=== PATIENT | male | born 1930 | race Caucasian/White ===

== ENCOUNTER 2022-01-22 12:32 | Inpatient (IN) | payer MEDICARE ==
[~2022-01-22] VITALS: Ht 177.8 cm; Wt 76.0 kg
[~2022-01-22 12:32] MED LIST: ALLO100T PO; CLOT15CR5 TP; FLUT9.9S NS; QUIN10TA15 PO; TERA5CAP3 PO
[2022-01-22] MEDS ORDERED: IV RINGERS,LACTATED 1000ML 1,000 ML IV SCH (13:15)
[2022-01-22 13:47] LABS: BASO % 0 % (0-3); EOS % 0 % (0-3); HEMATOCRIT 32.1 % (39.0-53.0); HEMOGLOBIN 10.8 g/dL (13.0-17.5); LYMPH # 0.8 x10^3/uL (1.0-4.8); LYMPH % 6 % (24-48); MEAN CORPUSCULAR HEMOGLOBIN 32 pg (25-35); MEAN CORPUSCULAR HGB CONC 34 g/dL (31-37); MEAN CORPUSCULAR VOLUME 94 fL (79-100); MONO # 1.4 x10^3/uL (0.0-1.1); MONO % 10 % (0-9); NEUT # 11.3 x10^3/uL (1.8-7.7); NEUT % 84 % (31-73); PLATELET COUNT 207 x10^3/uL (140-400); RED BLOOD COUNT 3.41 x10^6/uL (4.30-5.70); RED CELL DISTRIBUTION WIDTH 14.2 % (11.5-14.5); WHITE BLOOD COUNT 13.6 x10^3/uL (4.0-11.0)
[2022-01-22 13:56] LABS: CREATININE 1.9 mg/dL (0.7-1.3); GFR 33.5; POTASSIUM 3.9 mmol/L (3.5-5.1)
[2022-01-22 13:57] LABS: BACTERIA,URINE MODERATE /HPF (0-FEW); WBC,URINE TNTC /HPF (0-4)
[2022-01-22 14:02] LABS: ALBUMIN 3.2 g/dL (3.4-5.0); ALBUMIN/GLOBULIN RATIO 0.8 (1.0-1.7); MAGNESIUM 2.1 mg/dL (1.8-2.4); TOTAL BILIRUBIN 2.2 mg/dL (0.2-1.0); TOTAL PROTEIN 7.2 g/dL (6.4-8.2)
--- NOTE | 2022-01-22 14:33 | PHYS DOC ---
Past Medical History Past Medical History: Arthritis, Arrhythmia (flutter), CAD, High Cholesterol, Hypertension, Renal Disease, Stroke, TIA, Other Additional Past Medical Histor: seasonal allergies, gout, R side weakness- residual, BPH Additional Past Surgical Histo: R hand Smoking Status: Never Smoker Alcohol Use: None Drug Use: None General Adult EDM: Chief Complaint: BLOOD IN URINE HPI: HPI: Patient is a 89 year old male who [facility] from SNF [facility]. Per long-term, patient also has AMS. He typically is alert and oriented x4 and is independently mobile. Since coming home from outing with family yesterday, patient is alert and oriented x2-3 and weak. long term also reports two episodes of emesis. Patient complains of large bruise on RUE, which was negative for DVT via US in the facility. During interview and exam, patient states he "wants to get back to his room" multiple times. Review of Systems: Review of Systems: Unable to obtain secondary to patient's delirium. Heart Score: C/O Chest Pain: No Current Medications: Current Medications Medications (Trade) Dose Ordered Sig/Fozia Start Time Stop Time Status Last Admin Dose Admin Ringer's Solution 1,000 ml @ 1,000 mls/hr Q1H 01/22/22 13:15 01/22/22 14:14 DC 01/22/22 13:42 1,000 MLS/HR Allergies: Allergies: Allergies Coded Allergies Type Severity Reaction Last Updated Verified No Known Drug Allergies 01/22/22 No Physical Exam: PE: Constitutional: Well developed, well nourished, no acute distress, chronically ill-appearing. HENT: Normocephalic, atraumatic, bilateral external ears normal. Eyes: EOMI, conjunctiva normal, no discharge. Neck: Normal range of motion, no stridor. Cardiovascular: Heart regular rate and rhythm. No apparent murmurs, rubs or gallops. Lungs & Thorax: No increased work of breathing, equal thoracic expansion. Abdomen: Bowel sounds normal, soft, no tenderness, no masses, no pulsatile masses. Skin: Right upper extremity with diffuse ecchymosis with minimal tenderness. Skin otherwise warm, dry, no erythema, no rash. Extremities: No cyanosis, no clubbing, active ROM intact, no edema. Neurologic: Alert and oriented x2 (person, place), normal motor function, normal sensory function, no focal deficits noted. Current Patient Data: Labs: Laboratory Tests Test 01/22/22 13:25 01/22/22 13:36 Urine Collection Type U cath Urine Color (Auto) Light orange Urine Turbidity Turbid Urine pH (Auto) 6.0 (<5.0-8.0) Urine Specific [place] 1.013 (1.000-1.030) Urine Protein (Auto) 30 mg/dL (Negative) Urine Glucose (Auto)(UA) Negative mg/dL (Negative) Urine Ketones (Auto) Negative mg/dL (Negative) Urine Blood (Auto) Large (Negative) Urine Nitrite Negative (Negative) Urine Bilirubin (Auto) Negative (Negative) Urine Urobilinogen (Auto) Normal mg/dL (Normal) Urine Leukocyte Esterase (Auto) Large (Negative) Urine RBC 1-2 /HPF (0-2) Urine WBC Tntc /HPF (0-4) Urine Squamous Epithelial Cells Occ /LPF Urine Bacteria Moderate /HPF (0-FEW) White Blood Count 13.6 x10^3/uL (4.0-11.0) H Red Blood Count 3.41 x10^6/uL (4.30-5.70) L Hemoglobin 10.8 g/dL (13.0-17.5) L Hematocrit 32.1 % (39.0-53.0) L Mean Corpuscular Volume 94 fL (79-100) Mean Corpuscular Hemoglobin 32 pg (25-35) Mean Corpuscular Hemoglobin Concent 34 g/dL (31-37) Red Cell Distribution Width 14.2 % (11.5-14.5) Platelet Count 207 x10^3/uL (140-400) Neutrophils (%) (Auto) 84 % (31-73) H Lymphocytes (%) (Auto) 6 % (24-48) L Monocytes (%) (Auto) 10 % (0-9) H Eosinophils (%) (Auto) 0 % (0-3) Basophils (%) (Auto) 0 % (0-3) Neutrophils # (Auto) 11.3 x10^3/uL (1.8-7.7) H Lymphocytes # (Auto) 0.8 x10^3/uL (1.0-4.8) L Monocytes # (Auto) 1.4 x10^3/uL (0.0-1.1) H Eosinophils # (Auto) 0.0 x10^3/uL (0.0-0.7) Basophils # (Auto) 0.0 x10^3/uL (0.0-0.2) Sodium Level 144 mmol/L (136-145) Potassium Level 3.9 mmol/L (3.5-5.1) Chloride Level 106 mmol/L (98-107) Carbon Dioxide Level 27 mmol/L (21-32) Anion Gap 11 (6-14) Blood Urea Nitrogen 29 mg/dL (8-26) H Creatinine 1.9 mg/dL (0.7-1.3) H Estimated GFR (Cockcroft-Gault) 33.5 BUN/Creatinine Ratio 15 (6-20) Glucose Level 122 mg/dL (70-99) H Lactic Acid Level 1.4 mmol/L (0.4-2.0) Calcium Level 9.0 mg/dL (8.5-10.1) Magnesium Level 2.1 mg/dL (1.8-2.4) Total Bilirubin 2.2 mg/dL (0.2-1.0) H Aspartate Amino Transferase (AST) 18 U/L (15-37) Alanine Aminotransferase (ALT) 23 U/L (16-63) Alkaline Phosphatase 106 U/L (46-116) Total Protein 7.2 g/dL (6.4-8.2) Albumin 3.2 g/dL (3.4-5.0) L Albumin/Globulin Ratio 0.8 (1.0-1.7) L Laboratory Tests 01/22/22 13:36 Laboratory Tests 01/22/22 13:36 Vital Signs: Vital Signs Date Time Temp Pulse Resp B/P (MAP) Pulse Ox O2 Delivery O2 Flow Rate FiO2 01/22/22 15:45 108 20 145/76 (99) 96 01/22/22 14:45 105 20 144/81 (102) 95 01/22/22 13:43 99.2 89 20 118/75 (89) 97 99.2 01/22/22 12:41 98.6 107 14 152/83 (106) 96 Room Air 98.6 Course & Med Decision Making: Course & Med Decision Making Pertinent Labs and Imaging studies reviewed. (See chart for details) Patient is an 89-year-old male who presents with hematuria and altered mental status with an indwelling Kruse catheter. It is unclear the last time it was changed, but it has been in place for about 3 weeks. Patient appears to have urosepsis. He will be admitted for IV antibiotic administration and further treatment. Patient was gladly excepted for admission by hospitalist Dr. Siddiqi. Patient hemodynamically stable at time of transfer to the OR. Dragon Disclaimer: Dragon Disclaimer: This electronic medical record was generated, in whole or in part, using a voice recognition dictation system. Departure Departure Impression: Primary Impression: Sepsis secondary to UTI Additional Impressions: Indwelling catheter present on admission Obstructed Kruse catheter Qualified Codes: T83.091A - Other mechanical complication of indwelling urethral catheter, initial encounter Disposition: ADMITTED INPATIENT Admitting Physician: EMMIE Coulter) Condition: GUARDED Referrals: UNKNOWN PCP NAME (PCP) ARIK HICKMAN January 22, 2022 14:33
[2022-01-22] MEDS: cefTRIAXone IV Push 1 GM VIAL. IVP SCH (15:28)
[2022-01-22] MEDS ORDERED: ACETAMINOPHEN 325 MG TABLET. PO PRN (17:30)
[2022-01-22] MEDS ORDERED: FINA5TAB4 PO (17:30)
[2022-01-22] MEDS ORDERED: CALCIUM CARBONATE 500 MG TAB.CHEW PO PRN (17:30)
[2022-01-22] MEDS ORDERED: oxyCODONE/APAP 5/325 1 TAB TABLET PO PRN ×2 (17:30)
[2022-01-22] MEDS ORDERED: METO25TA4 PO (17:30)
[2022-01-22] MEDS ORDERED: ASPI81TA59 PO (17:30)
[2022-01-22] MEDS ORDERED: ELECTROLYTE (NON-ICU) PROTOCOL. MC PRN (17:30)
[2022-01-22] MEDS ORDERED: ONDANSETRON PF 4 MG/2 ML VIAL. IVP PRN (17:30)
[2022-01-22] MEDS ORDERED: TAMS0.4C97 PO (17:30)
[2022-01-22] MEDS ORDERED: ATOR40TA59 PO (17:34)
[2022-01-22] MEDS ORDERED: FURO20TA3 PO (17:34)
[2022-01-22] MEDS ORDERED: LOSA-73 PO (17:34)
--- NOTE | 2022-01-22 18:21 | PDOC1 ---
History and Physical Date of Service: DOS: DATE: 01/22/22 TIME: 18:18 Chief Complaint: Chief Complain: Hematuria History of Present Illness: HPI: Patient's mental status very altered cannot really obtain much history HPI from emergency room below. Patient is a 89 year old male who presents from SNF with hematuria from kruse catheter. Per fpc, patient also has AMS. He typically is alert and oriented x4 and is independently mobile. Since coming home from outing with family yesterday, patient is alert and oriented x2-3 and weak. M[facility] also reports two episodes of emesis. Patient complains of large bruise on RUE, which was negative for DVT via US in the facility. During interview and exam, patient states he "wants to get back to his room" multiple times. Past Medical/Surgical History: PMH/PSH: Past Medical History: Arthritis, Arrhythmia (flutter), CAD, High Cholesterol, Hypertension, Renal Disease, Stroke, TIA, Additional Past Medical Histor: seasonal allergies, gout, R side weakness- residual, BPH Additional Past Surgical Histo: R hand Smoking Status: Never Smoker Alcohol Use: None Drug Use: None Allergies: Allergies: Coded Allergies: No Known Drug Allergies (Unverified , 01/22/22) Family History: Family History: Cannot obtain from patient Current Medications: Current Medications Current Medications Ringer's Solution 1,000 ml @ 1,000 mls/hr Q1H IV Last administered on 01/22/22at 13:42; Start 01/22/22 at 13:15; Stop 01/22/22 at 14:14; Status DC Ceftriaxone Sodium (Rocephin) 1 gm Q24H IVP Last administered on 01/22/22at 15:28; Start 01/22/22 at 15:00 Ondansetron HCl (Zofran) 4 mg PRN Q6HRS PRN IVP NAUSEA/VOMITING; Start 01/22/22 at 17:30 Calcium Carbonate/ Glycine (Tums) 500 mg PRN Q3HRS PRN PO UPSET STOMACH; Start 01/22/22 at 17:30 Info (Non-Icu Electrolyte Protocol) 1 ea PRN DAILY PRN MC SEE COMMENTS; Start 01/22/22 at 17:30 Oxycodone/ Acetaminophen (Percocet 5/325) 1 tab PRN Q4HRS PRN PO MILD PAIN, 1ST CHOICE; Start 01/22/22 at 17:30 Oxycodone/ Acetaminophen (Percocet 5/325) 2 tab PRN Q4HRS PRN PO MODERATE PAIN, SEVERE PAIN; Start 01/22/22 at 17:30 Acetaminophen (Tylenol) 650 mg PRN Q6HRS PRN PO Headaches, Temp > 101.5F; Start 01/22/22 at 17:30 Senna/Docusate Sodium (Senna Plus) 1 tab BID PO ; Start 01/22/22 at 21:00 Heparin Sodium (Porcine) (Heparin Sodium) 5,000 unit Q12HR SQ ; Start 01/22/22 at 18:00 Allopurinol (Zyloprim) 100 mg DAILY PO ; Start 01/23/22 at 09:00 Aspirin (Aspirin Chewable) 81 mg HS PO ; Start 01/22/22 at 21:00 Atorvastatin Calcium (Lipitor) 40 mg QHS PO ; Start 01/22/22 at 21:00 Finasteride (Proscar) 5 mg DAILY PO ; Start 01/23/22 at 09:00 Furosemide (Lasix) 20 mg DAILY PO ; Start 01/23/22 at 09:00 Metoprolol Tartrate (Lopressor) 12.5 mg BID PO ; Start 01/22/22 at 21:00 Tamsulosin HCl (Flomax) 0.4 mg HS PO ; Start 01/22/22 at 21:00 Fluticasone Propionate (Flonase) 1 spray BID NS ; Start 01/22/22 at 21:00 Active Scripts Active Reported Losartan Potassium 50 Mg Tablet 50 Mg PO DAILY Furosemide 20 Mg Tablet 1 Tab PO DAILY Atorvastatin Calcium 40 Mg Tablet 1 Tab PO QHS Metoprolol Tartrate 25 Mg Tablet 0.5 Tab PO BID Children's Aspirin (Aspirin) 81 Mg Tab.chew 81 Mg PO HS Finasteride 5 Mg Tablet 5 Mg PO DAILY Flomax (Tamsulosin Hcl) 0.4 Mg Cap.er.24h 1 Cap PO HS Flonase Allergy Relief (Fluticasone Propionate) 9.9 Ml [place].susp 9.9 Ml NS BID Terazosin Hcl 5 Mg Capsule 5 Mg PO HS Quinapril Hcl 10 Mg Tablet 10 Mg PO HS Clotrimazole-Betamethasone Crm (Clotrimazole/Betamethasone Dip) 15 Gm Cream..g. 15 Gm TP BID Allopurinol 100 Mg Tablet 100 Mg PO DAILY ROS: Review of Systems Review of System Cannot obtain Physical Exam: Vital Signs: Vital Signs Date Time Temp Pulse Resp B/P (MAP) Pulse Ox O2 Delivery O2 Flow Rate FiO2 01/22/22 15:45 108 20 145/76 (99) 96 01/22/22 13:43 99.2 99.2 01/22/22 12:41 Room Air Physcial Exam: GEN: No apparent distress. Resting in bed HEENT: Normal cephalic, atraumatic, external auditory canals are patent EYES: Extraocular muscles are intact, pupil are equally round and reactive to light and accommodation MUSCULOSKELETAL: Limited range of motion ENDOCRINE: No thyromegaly was palpated LYMPHATICS: No cervical chain or axillary nodes were noted HEMATOPOIETIC: No bruising NECK: Supple, no JVD, no thyromegaly was noted LUNGS: Clear to auscultation in all lung hawkins without rhonchi or wheezing HEART: RRR, S1, S2 present. Peripheral pulses intact, no obvious murmurs noted ABDOMEN: Soft, nontender. Positive bowel sounds, no organomegaly, normal bowel sounds EXTREMITIES: Without clubbing, cyanosis, or edema. Pedal pulses intact. Negative Homans sign NEUROLOGIC: Asleep cannot awaken PSYCHIATRIC: Cannot assess SKIN: No ulcerations or rashes, good skin turgor, no jaundice VASCULAR: Good capillary refill, neurovascular bundle appears to be intact Labs: Labs: Laboratory Tests Test 01/22/22 13:25 01/22/22 13:36 Urine Collection Type U cath Urine Color (Auto) Light orange Urine Turbidity Turbid Urine pH (Auto) 6.0 (<5.0-8.0) Urine Specific [place] 1.013 (1.000-1.030) Urine Protein (Auto) 30 mg/dL (Negative) Urine Glucose (Auto)(UA) Negative mg/dL (Negative) Urine Ketones (Auto) Negative mg/dL (Negative) Urine Blood (Auto) Large (Negative) Urine Nitrite Negative (Negative) Urine Bilirubin (Auto) Negative (Negative) Urine Urobilinogen (Auto) Normal mg/dL (Normal) Urine Leukocyte Esterase (Auto) Large (Negative) Urine RBC 1-2 /HPF (0-2) Urine WBC Tntc /HPF (0-4) Urine Squamous Epithelial Cells Occ /LPF Urine Bacteria Moderate /HPF (0-FEW) White Blood Count 13.6 x10^3/uL (4.0-11.0) Red Blood Count 3.41 x10^6/uL (4.30-5.70) Hemoglobin 10.8 g/dL (13.0-17.5) Hematocrit 32.1 % (39.0-53.0) Mean Corpuscular Volume 94 fL (79-100) Mean Corpuscular Hemoglobin 32 pg (25-35) Mean Corpuscular Hemoglobin Concent 34 g/dL (31-37) Red Cell Distribution Width 14.2 % (11.5-14.5) Platelet Count 207 x10^3/uL (140-400) Neutrophils (%) (Auto) 84 % (31-73) Lymphocytes (%) (Auto) 6 % (24-48) Monocytes (%) (Auto) 10 % (0-9) Eosinophils (%) (Auto) 0 % (0-3) Basophils (%) (Auto) 0 % (0-3) Neutrophils # (Auto) 11.3 x10^3/uL (1.8-7.7) Lymphocytes # (Auto) 0.8 x10^3/uL (1.0-4.8) Monocytes # (Auto) 1.4 x10^3/uL (0.0-1.1) Eosinophils # (Auto) 0.0 x10^3/uL (0.0-0.7) Basophils # (Auto) 0.0 x10^3/uL (0.0-0.2) Sodium Level 144 mmol/L (136-145) Potassium Level 3.9 mmol/L (3.5-5.1) Chloride Level 106 mmol/L (98-107) Carbon Dioxide Level 27 mmol/L (21-32) Anion Gap 11 (6-14) Blood Urea Nitrogen 29 mg/dL (8-26) Creatinine 1.9 mg/dL (0.7-1.3) Estimated GFR (Cockcroft-Gault) 33.5 BUN/Creatinine Ratio 15 (6-20) Glucose Level 122 mg/dL (70-99) Lactic Acid Level 1.4 mmol/L (0.4-2.0) Calcium Level 9.0 mg/dL (8.5-10.1) Magnesium Level 2.1 mg/dL (1.8-2.4) Total Bilirubin 2.2 mg/dL (0.2-1.0) Aspartate Amino Transf (AST/SGOT) 18 U/L (15-37) Alanine Aminotransferase (ALT/SGPT) 23 U/L (16-63) Alkaline Phosphatase 106 U/L (46-116) Total Protein 7.2 g/dL (6.4-8.2) Albumin 3.2 g/dL (3.4-5.0) Albumin/Globulin Ratio 0.8 (1.0-1.7) Laboratory Tests Test 01/22/22 13:25 01/22/22 13:36 Urine Collection Type U cath Urine Color (Auto) Light orange Urine Turbidity Turbid Urine pH (Auto) 6.0 (<5.0-8.0) Urine Specific [place] 1.013 (1.000-1.030) Urine Protein (Auto) 30 mg/dL (Negative) Urine Glucose (Auto)(UA) Negative mg/dL (Negative) Urine Ketones (Auto) Negative mg/dL (Negative) Urine Blood (Auto) Large (Negative) Urine Nitrite Negative (Negative) Urine Bilirubin (Auto) Negative (Negative) Urine Urobilinogen (Auto) Normal mg/dL (Normal) Urine Leukocyte Esterase (Auto) Large (Negative) Urine RBC 1-2 /HPF (0-2) Urine WBC Tntc /HPF (0-4) Urine Squamous Epithelial Cells Occ /LPF Urine Bacteria Moderate /HPF (0-FEW) White Blood Count 13.6 x10^3/uL (4.0-11.0) Red Blood Count 3.41 x10^6/uL (4.30-5.70) Hemoglobin 10.8 g/dL (13.0-17.5) Hematocrit 32.1 % (39.0-53.0) Mean Corpuscular Volume 94 fL (79-100) Mean Corpuscular Hemoglobin 32 pg (25-35) Mean Corpuscular Hemoglobin Concent 34 g/dL (31-37) Red Cell Distribution Width 14.2 % (11.5-14.5) Platelet Count 207 x10^3/uL (140-400) Neutrophils (%) (Auto) 84 % (31-73) Lymphocytes (%) (Auto) 6 % (24-48) Monocytes (%) (Auto) 10 % (0-9) Eosinophils (%) (Auto) 0 % (0-3) Basophils (%) (Auto) 0 % (0-3) Neutrophils # (Auto) 11.3 x10^3/uL (1.8-7.7) Lymphocytes # (Auto) 0.8 x10^3/uL (1.0-4.8) Monocytes # (Auto) 1.4 x10^3/uL (0.0-1.1) Eosinophils # (Auto) 0.0 x10^3/uL (0.0-0.7) Basophils # (Auto) 0.0 x10^3/uL (0.0-0.2) Sodium Level 144 mmol/L (136-145) Potassium Level 3.9 mmol/L (3.5-5.1) Chloride Level 106 mmol/L (98-107) Carbon Dioxide Level 27 mmol/L (21-32) Anion Gap 11 (6-14) Blood Urea Nitrogen 29 mg/dL (8-26) Creatinine 1.9 mg/dL (0.7-1.3) Estimated GFR (Cockcroft-Gault) 33.5 BUN/Creatinine Ratio 15 (6-20) Glucose Level 122 mg/dL (70-99) Lactic Acid Level 1.4 mmol/L (0.4-2.0) Calcium Level 9.0 mg/dL (8.5-10.1) Magnesium Level 2.1 mg/dL (1.8-2.4) Total Bilirubin 2.2 mg/dL (0.2-1.0) Aspartate Amino Transf (AST/SGOT) 18 U/L (15-37) Alanine Aminotransferase (ALT/SGPT) 23 U/L (16-63) Alkaline Phosphatase 106 U/L (46-116) Total Protein 7.2 g/dL (6.4-8.2) Albumin 3.2 g/dL (3.4-5.0) Albumin/Globulin Ratio 0.8 (1.0-1.7) Assessment/Plan Assessment/Plan Sepsis secondary to UTI. History arthritis a flutter CAD hypertension hyperlipidemia stroke delirium -Admit to [facility] -Started on Rocephin in emergency room continue this for now. -Follow blood and urine cultures -Exchange Kruse -We will try to contact and communicate with family -DVT prophylaxis -Home meds as indicated Discussed with bedside RN Justifications for Admission Other Justification OSCAR MCADAMS MD January 22, 2022 18:21
[2022-01-22 19:15] VITALS: BP 142/72
[2022-01-22] MEDS: ATORVASTATIN CALCIUM 40 MG TABLET. PO SCH (21:07)
[2022-01-22] MEDS: SENNOSIDES/DOCUSATE 8.6/50MG TABLET. PO SCH (21:07)
[2022-01-22] MEDS: TAMSULOSIN 0.4 MG CAP.ER.24H. PO SCH (21:07)
[2022-01-22] MEDS: ASPIRIN CHEWABLE 81 MG TABLET. PO SCH (21:07)
[2022-01-22] MEDS: METOPROLOL TART IMMED RELEASE 25 MG TABLET. PO SCH (21:08)
[2022-01-22] MEDS: FLUTICASONE 50MCG/NASAL SPRAY 16GM BOTTLE. NS SCH (21:08)
[2022-01-22] MEDS: HEPARIN for SUB-Q USE 5,000 UNIT/ML VIAL. SQ SCH (21:10)
[2022-01-22 23:32] VITALS: BP 133/57
[2022-01-23 02:57] VITALS: BP 123/70
[2022-01-23 07:01] VITALS: BP 123/63
[2022-01-23] MEDS ORDERED: FUROSEMIDE 20 MG TABLET PO SCH (09:00)
[2022-01-23] MEDS ORDERED: ALLOPURINOL 100 MG TABLET. PO SCH (09:00)
[2022-01-23] MEDS ORDERED: FINASTERIDE 5 MG TABLET. PO SCH (09:00)
[2022-01-23] MEDS: SENNOSIDES/DOCUSATE 8.6/50MG TABLET. PO SCH ×2 (09:10→21:11)
[2022-01-23] MEDS: METOPROLOL TART IMMED RELEASE 25 MG TABLET. PO SCH ×2 (09:10→21:12)
[2022-01-23] MEDS: LACTOBACILLUS RHAMNOSUS GG 1 CAPSULE. PO SCH ×2 (09:10→21:11)
[2022-01-23] MEDS: HEPARIN for SUB-Q USE 5,000 UNIT/ML VIAL. SQ SCH (09:17)
[2022-01-23 10:35] LABS: BASO % 0 % (0-3); EOS # 0.5 x10^3/uL (0.0-0.7); EOS % 5 % (0-3); HEMATOCRIT 29.6 % (39.0-53.0); HEMOGLOBIN 9.9 g/dL (13.0-17.5); LYMPH % 11 % (24-48); MEAN CORPUSCULAR HEMOGLOBIN 31 pg (25-35); MEAN CORPUSCULAR HGB CONC 34 g/dL (31-37); MEAN CORPUSCULAR VOLUME 94 fL (79-100); MONO # 0.6 x10^3/uL (0.0-1.1); MONO % 7 % (0-9); NEUT # 6.9 x10^3/uL (1.8-7.7); NEUT % 76 % (31-73); PLATELET COUNT 176 x10^3/uL (140-400); RED BLOOD COUNT 3.16 x10^6/uL (4.30-5.70); RED CELL DISTRIBUTION WIDTH 14.6 % (11.5-14.5); WHITE BLOOD COUNT 9.1 x10^3/uL (4.0-11.0)
[2022-01-23 10:44] LABS: CALCIUM 8.4 mg/dL (8.5-10.1); CREATININE 1.5 mg/dL (0.7-1.3); GFR 44.1; MAGNESIUM 2.1 mg/dL (1.8-2.4); POTASSIUM 3.2 mmol/L (3.5-5.1)
[2022-01-23] MEDS ORDERED: APIX5TAB PO (10:46)
[2022-01-23] MEDS ORDERED: FURO40TA4 PO (10:46)
[2022-01-23] MEDS ORDERED: METO25TA4 PO (10:46)
[2022-01-23] MEDS ORDERED: ALLO100T PO (10:46)
[2022-01-23] MEDS ORDERED: CYAN500T17 PO (10:55)
[2022-01-23 11:14] VITALS: BP 150/65
--- NOTE | 2022-01-23 11:32 | PDOC ---
[employer] PROGRESS NOTE Date of Service DOS: DATE: 01/23/22 TIME: 11:29 Chief Complaint Chief Complaint Assessment/Plan Sepsis secondary to UTI. History arthritis a flutter CAD hypertension hyperlipidemia stroke delirium -Admit to MedSurg -Started on Rocephin in emergency room continue this for now. -Follow blood and urine cultures -Exchange Kruse -We will try to contact and communicate with family -DVT prophylaxis -Home meds as indicated Discussed with bedside RN History of Present Illness History of Present Illness Patient's mental status very altered cannot really obtain much history HPI from emergency room below. Patient is a 89 year old male who presents from SNF with hematuria from kruse catheter. Per detention, patient also has AMS. He typically is alert and oriented x4 and is independently mobile. Since coming home from outing with family yesterday, patient is alert and oriented x2-3 and weak. custodial also reports two episodes of emesis. Patient complains of large bruise on RUE, which was negative for DVT via US in the facility. During interview and exam, patient states he "wants to get back to his room" multiple times. 01/23/2022 No acute events overnight. Patient seen examined bedside. Patient less confused and appears to be conversing appropriately. Alert and awake and oriented to self. Pending urine cultures. Pending PT OT evaluation. Potassium of 3.2 this morning. Will replace with IV as needed. Patient's chart, labs, images were reviewed and discussed with RN Vitals/I&O Vitals/I&O: Vital Signs Date Time Temp Pulse Resp B/P (MAP) Pulse Ox O2 Delivery O2 Flow Rate FiO2 01/23/22 11:14 98.1 73 16 150/65 (93) 95 Room Air 98.1 I & O 01/22/22 01/22/22 01/23/22 15:00 23:00 07:00 Intake Total 850 ml 360 ml Output Total 1800 ml Balance -950 ml 360 ml Physical Exam General: Alert, Cooperative Heart: Regular rate Lungs: Clear Abdomen: Normal bowel sounds Extremities: No clubbing Labs Labs: Laboratory Tests Test 01/22/22 13:25 01/22/22 13:36 01/23/22 10:15 Urine Collection Type U cath Urine Color (Auto) Light orange Urine Turbidity Turbid Urine pH (Auto) 6.0 (<5.0-8.0) Urine Specific [place] 1.013 (1.000-1.030) Urine Protein (Auto) 30 mg/dL (Negative) Urine Glucose (Auto)(UA) Negative mg/dL (Negative) Urine Ketones (Auto) Negative mg/dL (Negative) Urine Blood (Auto) Large (Negative) Urine Nitrite Negative (Negative) Urine Bilirubin (Auto) Negative (Negative) Urine Urobilinogen (Auto) Normal mg/dL (Normal) Urine Leukocyte Esterase (Auto) Large (Negative) Urine RBC 1-2 /HPF (0-2) Urine WBC Tntc /HPF (0-4) Urine Squamous Epithelial Cells Occ /LPF Urine Bacteria Moderate /HPF (0-FEW) White Blood Count 13.6 x10^3/uL (4.0-11.0) 9.1 x10^3/uL (4.0-11.0) Red Blood Count 3.41 x10^6/uL (4.30-5.70) 3.16 x10^6/uL (4.30-5.70) Hemoglobin 10.8 g/dL (13.0-17.5) 9.9 g/dL (13.0-17.5) Hematocrit 32.1 % (39.0-53.0) 29.6 % (39.0-53.0) Mean Corpuscular Volume 94 fL (79-100) 94 fL (79-100) Mean Corpuscular Hemoglobin 32 pg (25-35) 31 pg (25-35) Mean Corpuscular Hemoglobin Concent 34 g/dL (31-37) 34 g/dL (31-37) Red Cell Distribution Width 14.2 % (11.5-14.5) 14.6 % (11.5-14.5) Platelet Count 207 x10^3/uL (140-400) 176 x10^3/uL (140-400) Neutrophils (%) (Auto) 84 % (31-73) 76 % (31-73) Lymphocytes (%) (Auto) 6 % (24-48) 11 % (24-48) Monocytes (%) (Auto) 10 % (0-9) 7 % (0-9) Eosinophils (%) (Auto) 0 % (0-3) 5 % (0-3) Basophils (%) (Auto) 0 % (0-3) 0 % (0-3) Neutrophils # (Auto) 11.3 x10^3/uL (1.8-7.7) 6.9 x10^3/uL (1.8-7.7) Lymphocytes # (Auto) 0.8 x10^3/uL (1.0-4.8) 1.0 x10^3/uL (1.0-4.8) Monocytes # (Auto) 1.4 x10^3/uL (0.0-1.1) 0.6 x10^3/uL (0.0-1.1) Eosinophils # (Auto) 0.0 x10^3/uL (0.0-0.7) 0.5 x10^3/uL (0.0-0.7) Basophils # (Auto) 0.0 x10^3/uL (0.0-0.2) 0.0 x10^3/uL (0.0-0.2) Sodium Level 144 mmol/L (136-145) 142 mmol/L (136-145) Potassium Level 3.9 mmol/L (3.5-5.1) 3.2 mmol/L (3.5-5.1) Chloride Level 106 mmol/L (98-107) 106 mmol/L (98-107) Carbon Dioxide Level 27 mmol/L (21-32) 26 mmol/L (21-32) Anion Gap 11 (6-14) 10 (6-14) Blood Urea Nitrogen 29 mg/dL (8-26) 29 mg/dL (8-26) Creatinine 1.9 mg/dL (0.7-1.3) 1.5 mg/dL (0.7-1.3) Estimated GFR (Cockcroft-Gault) 33.5 44.1 BUN/Creatinine Ratio 15 (6-20) Glucose Level 122 mg/dL (70-99) 167 mg/dL (70-99) Lactic Acid Level 1.4 mmol/L (0.4-2.0) Calcium Level 9.0 mg/dL (8.5-10.1) 8.4 mg/dL (8.5-10.1) Magnesium Level 2.1 mg/dL (1.8-2.4) 2.1 mg/dL (1.8-2.4) Total Bilirubin 2.2 mg/dL (0.2-1.0) Aspartate Amino Transf (AST/SGOT) 18 U/L (15-37) Alanine Aminotransferase (ALT/SGPT) 23 U/L (16-63) Alkaline Phosphatase 106 U/L (46-116) Total Protein 7.2 g/dL (6.4-8.2) Albumin 3.2 g/dL (3.4-5.0) Albumin/Globulin Ratio 0.8 (1.0-1.7) Assessment and Plan Assessmemt and Plan Problems Medical Problems: (1) Indwelling catheter present on admission Status: Acute (2) Obstructed Kruse catheter Status: Acute (3) Sepsis secondary to UTI Status: Acute Comment Review of Relevant I have reviewed the following items ashlie (where applicable) has been applied. Medications: Current Medications Medications (Trade) Dose Ordered Sig/Fozia Route PRN Reason Start Time Stop Time Status Last Admin Dose Admin Ringer's Solution 1,000 ml @ 1,000 mls/hr Q1H IV 01/22/22 13:15 01/22/22 14:14 DC 01/22/22 13:42 Ceftriaxone Sodium (Rocephin) 1 gm Q24H IVP 01/22/22 15:00 01/22/22 15:28 Senna/Docusate Sodium (Senna Plus) 1 tab BID PO 01/22/22 21:00 01/23/22 09:10 Heparin Sodium (Porcine) (Heparin Sodium) 5,000 unit Q12HR SQ 01/22/22 18:00 01/23/22 09:17 Allopurinol (Zyloprim) 100 mg DAILY PO 01/23/22 09:00 01/23/22 09:10 Aspirin (Aspirin Chewable) 81 mg HS PO 01/22/22 21:00 01/22/22 21:07 Atorvastatin Calcium (Lipitor) 40 mg QHS PO 01/22/22 21:00 01/22/22 21:07 Finasteride (Proscar) 5 mg DAILY PO 01/23/22 09:00 01/23/22 09:10 Furosemide (Lasix) 20 mg DAILY PO 01/23/22 09:00 01/23/22 09:10 Metoprolol Tartrate (Lopressor) 12.5 mg BID PO 01/22/22 21:00 01/23/22 09:10 Tamsulosin HCl (Flomax) 0.4 mg HS PO 01/22/22 21:00 01/22/22 21:07 Fluticasone Propionate (Flonase) 1 spray BID NS 01/22/22 21:00 01/22/22 21:08 Lactobacillus Rhamnosus (Culturelle) 1 cap BID PO 01/23/22 09:00 01/23/22 09:10 Justifications for Admission Other Justification ELISE PRICE MD January 23, 2022 11:31
[2022-01-23] MEDS ORDERED: CYANOCOBALAMIN (VITAMIN B-12) 1,000 MCG TABLET. PO SCH (12:00)
[2022-01-23] MEDS: APIXABAN 2.5 MG TABLET. PO SCH ×2 (12:33→21:11)
[2022-01-23] MEDS: POTASSIUM CHLORIDE 20 MEQ TABLET.ER. PO SCH ×2 (12:34→21:12)
[2022-01-23] MEDS: FLUTICASONE 50MCG/NASAL SPRAY 16GM BOTTLE. NS SCH ×2 (12:34→21:11)
[2022-01-23] MEDS: cefTRIAXone IV Push 1 GM VIAL. IVP SCH (12:39)
[2022-01-23] MEDS ORDERED: IV RINGERS,LACTATED 1000ML 1,000 ML IV SCH (14:15)
[2022-01-23 15:18] VITALS: BP 166/65
[2022-01-23 19:00] VITALS: BP 154/92
[2022-01-23] MEDS: ASPIRIN CHEWABLE 81 MG TABLET. PO SCH (21:11)
[2022-01-23] MEDS: TAMSULOSIN 0.4 MG CAP.ER.24H. PO SCH (21:11)
[2022-01-23] MEDS: ATORVASTATIN CALCIUM 40 MG TABLET. PO SCH (21:11)
[2022-01-23 21:12] VITALS: BP 154/92
== END 2022-01-24 | DRG 698 ==
LOC: ER 12:32 → 4 NORTH 14:21
PROVIDERS: ADMIT Student in an Organized Health Care Education/Training Program; ATTEND Student in an Organized Health Care Education/Training Program
DX: T83.511A Infection and inflammatory reaction due to indwelling urethral catheter, initial encounter (principal); A41.9 Sepsis, unspecified organism; G93.41 Metabolic encephalopathy; N39.0 Urinary tract infection, site not specified; E78.00 Pure hypercholesterolemia, unspecified; E78.5 Hyperlipidemia, unspecified; I10 Essential (primary) hypertension; I25.10 Atherosclerotic heart disease of native coronary artery without angina pectoris; N40.0 Benign prostatic hyperplasia without lower urinary tract symptoms; S40.021A Contusion of right upper arm, initial encounter; Y73.8 Miscellaneous gastroenterology and urology devices associated with adverse incidents, not elsewhere classified; Z86.73 Personal history of transient ischemic attack (TIA), and cerebral infarction without residual deficits; M10.9 Gout, unspecified; J30.2 Other seasonal allergic rhinitis; M19.90 Unspecified osteoarthritis, unspecified site; R31.9 Hematuria, unspecified
CPT/HCPCS: 36415; 80048; 80053; 81001; 83605; 83735; 85025; 87040; 87077; 87086; 87186; 96360; J0696; J1644; J7120; U0003; 99285-25; G0378